=== PATIENT | male | born 1950 | race Two or more races ===

== ENCOUNTER 2020-01-31 14:06 | Outpatient (CLI) | payer OTHER | END 2020-01-31 14:10 | disposition home or self-care (01) | LOC: EDBD 14:06 → LAB 14:06 | PROVIDERS: ATTEND Urology | DX: R97.20 Elevated prostate specific antigen [PSA] (principal) ==

== ENCOUNTER 2020-02-15 07:06 | Outpatient (CLI) | payer OTHER | END 2020-02-15 07:12 | disposition home or self-care (01) | LOC: SONOGRAMA 07:06 | PROVIDERS: ATTEND Urology | DX: R97.20 Elevated prostate specific antigen [PSA] (principal) ==

== ENCOUNTER 2021-10-19 10:56 | Outpatient (CLI) | payer OTHER | END 2021-10-19 11:00 | disposition home or self-care (01) | LOC: LAB 10:56 | PROVIDERS: ATTEND Urology | DX: R97.20 Elevated prostate specific antigen [PSA] (principal) ==

== ENCOUNTER 2021-11-13 07:18 | Outpatient (CLI) | payer OTHER | END 2021-11-13 07:31 | disposition home or self-care (01) | LOC: SONOGRAMA 07:18 | PROVIDERS: ATTEND Urology | DX: R97.20 Elevated prostate specific antigen [PSA] (principal); C61 Malignant neoplasm of prostate ==

== ENCOUNTER 2021-12-22 09:29 | Outpatient (CLI) | payer OTHER | END 2021-12-22 09:31 | disposition home or self-care (01) | LOC: TOM 09:29 | PROVIDERS: ATTEND Urology | DX: C61 Malignant neoplasm of prostate (principal) ==

== ENCOUNTER 2022-01-07 07:24 | Outpatient (CLI) | payer OTHER | END 2022-01-07 07:25 | disposition home or self-care (01) | LOC: NUCLEAR 07:24 | PROVIDERS: ATTEND Urology | DX: C61 Malignant neoplasm of prostate (principal) ==

== ENCOUNTER 2022-04-19 09:09 | Outpatient (CLI) | payer OTHER | END 2022-04-19 09:15 | disposition home or self-care (01) | LOC: LAB 09:09 | PROVIDERS: ATTEND Urology | DX: Z01.812 Encounter for preprocedural laboratory examination (principal); Z01.810 Encounter for preprocedural cardiovascular examination; C61 Malignant neoplasm of prostate; U07.1 COVID-19; B34.1 Enterovirus infection, unspecified ==

== ENCOUNTER 2022-04-20 07:33 | Outpatient (CLI) | payer OTHER | END 2022-04-20 07:35 | disposition home or self-care (01) | LOC: NUCLEAR 07:33 | PROVIDERS: ATTEND Urology | DX: I25.10 Atherosclerotic heart disease of native coronary artery without angina pectoris (principal) | CPT/HCPCS: 78452; 93017; A9500 ==

== ENCOUNTER 2022-06-18 09:31 | Outpatient (CLI) | payer OTHER | END 2022-06-18 09:34 | disposition home or self-care (01) | LOC: LAB 09:31 | PROVIDERS: ATTEND Urology | DX: Z20.822 Contact with and (suspected) exposure to COVID-19 (principal) ==

== ENCOUNTER 2022-06-21 11:00 | Inpatient (IN) | payer OTHER ==
[~2022-06-21] VITALS: Ht 167.6 cm; Wt 83.5 kg
[2022-06-21] MEDS ORDERED: LIPITOR20 MG PO (13:09)
== END 2022-06-25 11:14 | disposition home or self-care (01) | DRG 708 ==
LOC: SURH 06-23 05:15 → O/R 06-23 05:15 → SURG 06-23 07:00 → SURH 06-23 13:47
PROVIDERS: ADMIT Urology; ATTEND Urology
PROC: 0VT30ZZ Resection of Bilateral Seminal Vesicles, Open Approach (ICD-10-PCS; 2022-06-23)
PROC: 07TB0ZZ Resection of Mesenteric Lymphatic, Open Approach (ICD-10-PCS; 2022-06-23)
PROC: 0VT00ZZ Resection of Prostate, Open Approach (ICD-10-PCS; principal; 2022-06-23 07:00)
DX: C61 Malignant neoplasm of prostate (principal)

== ENCOUNTER 2023-08-10 09:18 | Outpatient (CLI) | payer OTHER ==
[~2023-08-10 09:18] MED LIST: LIPITOR20 MG PO
[2023-08-10 10:41] LABS: PH,URINE 5.5 (5.0-8.0); URINE APPEARANCE Clear; URINE BILIRRUBIN Negative (NEGATIVE); URINE BLOOD Negative; URINE COLOR Yellow; URINE GLUCOSE Negative (NEGATIVE); URINE LEUKOCYTE Negative; URINE NITRATE Negative; URINE PROTEIN Negative (NEGATIVE); URINE UROBILINOGEN 0.2 E.U./dl
[2023-08-10 10:50] LABS: URINE BACTERIA 2.5 uL (0.0-1933); URINE EPITHELIAL CELLS 0.2 uL (0.0-38.8); URINE RBC 1.4 uL (0.0-20.8); URINE WBC 0.2 uL (0.0-23.2)
== END 2023-08-10 09:22 | disposition home or self-care (01) ==
LOC: LAB 09:18
PROVIDERS: ATTEND Urology
DX: C61 Malignant neoplasm of prostate (principal)

== ENCOUNTER → 2024-09-18 08:36 | Outpatient (CLI) | payer OTHER | END | disposition home or self-care (01) | LOC: LAB 08:36 | PROVIDERS: ATTEND Urology | DX: C61 Malignant neoplasm of prostate (principal) ==